=== PATIENT | female | born 1955 | race Caucasian/White ===

== ENCOUNTER 2021-12-05 13:10 | Inpatient (IN) | payer MEDICARE ==
[~2021-12-05] VITALS: Ht 165.1 cm; Wt 137.0 kg
[2021-12-05] MEDS ORDERED: ELIQUIS 5MG PO (14:35)
[2021-12-05] MEDS ORDERED: ERY-TAB250 MG PO (14:36)
[2021-12-05] MEDS ORDERED: LIPITOR 40MG TA40 MG PO (14:36)
[2021-12-05] MEDS ORDERED: ZESTRIL 10MG10 MG PO (14:37)
[2021-12-05] MEDS ORDERED: KEPPRA1000 MG PO (14:37)
[2021-12-05] MEDS ORDERED: PROTONIX 40MG T40 MG PO (14:38)
[2021-12-05] MEDS ORDERED: MELATONIN5 M1 PO (14:38)
[2021-12-05] MEDS ORDERED: TOPROL XL 50MG50 MG PO (14:38)
[2021-12-05] MEDS ORDERED: BELSOMRA10 MG PO (14:39)
[2021-12-05] MEDS ORDERED: SENOKOT S 50 MG1 TAB PO (14:39)
[2021-12-05] MEDS ORDERED: PROZAC40 MG PO (14:40)
[2021-12-05] MEDS ORDERED: KLOR-CON 1010 MEQ PO (14:40)
[2021-12-05] MEDS ORDERED: MIRAPEX 1MG PO (14:41)
--- NOTE | 2021-12-05 16:06 | NUR ---
Pt arrived to unit via medical transport from [facility]. She is a/o x4. Denies pain/discomfort. Verbalizes needs/wants. Admission intake and assessment completed. Orientation provided to room/unit
[2021-12-05 16:17] VITALS: BP 122/72; PULSE 71; TEMP 97.9
--- NOTE | 2021-12-05 16:24 | NUR ---
Pt brought 9-10 pairs of earrings to unit. 2 rings noted on left hand and right hand. Pt. does not want to store these in the safe at this time
[2021-12-05] MEDS ORDERED: LASIX 20MG TABL20 MG PO (17:25)
--- NOTE | 2021-12-05 18:08 | NUR ---
Pt assisted to toilet using gait belt, SBA.
[2021-12-05 18:09] VITALS: BP 122/72; PULSE 71; TEMP 97.9
--- NOTE | 2021-12-05 20:46 | NUR ---
PT RESTING IN BED. VERY TIRED. SEE MAR FOR MELATONIN GIVEN. LT SIDED WEAKNESS VERY MINIMAL. NO MOUTH DROOP. SOMETIME SPEECH IS SLURRED SLIGHTLY. DENEIS PAIN. CALL LIGHT IN REACH. BED ALARM SET.
--- NOTE | 2021-12-06 | NUR ---
gave tylenol for general aches
[2021-12-06 05:40] VITALS: BP 133/65; PULSE 74; TEMP 98.3
--- NOTE | 2021-12-06 09:24 | NUR ---
Initial visit; Patient thanked Stock Replenisher for looking in on her. No complained of a headache. Stock Replenisher asked if she had told her nurse and she said she would do so. Stock Replenisher offered God's blessings and to keep her in Chaplains prayers.
--- NOTE | 2021-12-06 09:28 | NUR ---
ASSESSMENT COMPLETED. PATIENT IS A & O X4. DENIES PAIN AT THIS TIME BUT HAD A TYLENOL LAST NIGHT FOR GENERAL PAIN. SPRING CATHETER IN TACT WITH YELLOW URINE. PLAN OF CARE WAS DISCUSSED AND INSTRUCTED TO CALL IF THERE IS ANY CONCERN OR QUESTION.
--- NOTE | 2021-12-06 09:50 | NUR ---
Patient with therapy taking shower.
--- NOTE | 2021-12-06 11:38 | NUR ---
Burgos cath DCd at this time. 10mls fluid removed from bulb-bulb intact. Discussed excoriation to skin folds with Dr Hicks. New orders received and initiated. Patient off floor at this time for PT.
--- NOTE | 2021-12-06 14:34 | NUR ---
HERBERTH completed intake with patient. Patient provides that she is from [facility] and lives a long. Next of kin is her son Daniel Brooke [phone]. Patient states that she was not previously using a walker, but stated therapy would like for her to use one currently. Patient is independent with ADL's, PCP is Dr. Iyer, pharmacy is [facility]. Patient provides that she does not have anyone appointed as her DPOA/HC, but is in the process of completing. Patient states that her plan upon DC is to go home if able to. SW will continue to follow. DC plan: home
--- NOTE | 2021-12-06 16:20 | NUR ---
Patient up to bathroom with one assist/gait belt/walker. Voided without difficulty. Medium formed bowel movement. Per care complete. Powder applied to excoriated areas of thighs/groin/abd folds.
[2021-12-06 16:47] VITALS: BP 125/55; PULSE 67; TEMP 98
--- NOTE | 2021-12-06 17:28 | NUR ---
Patient has had an uneventful day. Tolerated PT/OT. Has voided x1 since land cath removed. VS remained stable. 1 assist with walker/gait belt. Denies current needs. Call light in reach. Will monitor.
[2021-12-06 18:01] VITALS: BP 127/55; PULSE 70
--- NOTE | 2021-12-06 18:05 | NUR ---
Called with c/o headache-rating samantha 4/10 on pain scale. Blood pressure checked and WNL. Tylenol given per dr schilling.
--- NOTE | 2021-12-06 19:40 | NUR ---
ASSESSMENT COMPLETE. PT. LYING IN BED. A&O. MINOR EXCORTION TO INNER THIGHS. POWDER APPLIED. NO COMPLAINTS OF PAIN. CALL LIGHT IN REACH. NO FURTHER NEEDS AT THIS TIME.
[2021-12-07 05:16] VITALS: BP 135/53; PULSE 73; TEMP 97.7
[2021-12-07 07:18] VITALS: BP 134/58; PULSE 66; TEMP 98.1
[2021-12-07 17:24] VITALS: BP 104/30; PULSE 75; TEMP 98.5
--- NOTE | 2021-12-07 19:30 | NUR ---
RECEIVED CHANGE OF SHIFT REPORT FROM DAY SHIFT RN. PATIENT UP IN CHAIR DURING REPORT BUT WANTED BACK IN BED. TRANSFERED WITH NO PROBLEMS, REFUSED TO USE WALKER FROM CHAIR TO BED. CALL LIGHT WITHIN REACH. DENIES ANY NEEDS DURING REPORT.
--- NOTE | 2021-12-07 23:54 | NUR ---
REQUESTED/GIVEN TYLENOL FOR C/O BLE DISCOMFORT FROM RLS. SEE MAR FOR MED GIVEN.
[2021-12-08 05:58] VITALS: BP 119/70; PULSE 71; TEMP 97.9
--- NOTE | 2021-12-08 07:13 | NUR ---
CHANGE OF SHIFT REPORT GIVEN TO DAY SHIFT RNJANNETTE.
[2021-12-08 09:39] VITALS: BP 110/51; PULSE 84
--- NOTE | 2021-12-08 12:11 | NUR ---
0945 PATIENTS BP RECHECKED AND CURRENTLY 110/[address] BUSTAMANTEED TO GIVE ALL MORNING MEDICATIONS. AND TO INFORM HIM FOR SYSTOLIC <90
[2021-12-08 17:18] VITALS: BP 117/66; PULSE 77; TEMP 98
--- NOTE | 2021-12-08 19:00 | NUR ---
RECEIVED CHANGE OF SHIFT REPORT FROM DAY SHIFT RN.
--- NOTE | 2021-12-09 02:08 | NUR ---
PATIENT COMPLAINING OF OUTER CORNER OF R EYE WITH RED IRRITATION/SMALL AMOUNT OF SWELLING WITH SOME ITCHING TO AREA OF CONCERN. NO RELIEF WITH COOL OR WARM COMPRESSES. REPORTED THIS EYE REDNESS HAS BEEN BOTHERING PATIENT INTERMITTENTLY FOR ABOUT 1 MONTH.
--- NOTE | 2021-12-09 05:55 | NUR ---
OBSERVED INNER CORNER OF RIGHT EYE RED, WITH SWELLING AND ITCHING AND FEELING IRRITATED.
[2021-12-09 06:35] VITALS: BP 140/79; PULSE 73; TEMP 97.9
--- NOTE | 2021-12-09 07:41 | NUR ---
CHANGE OF SHIFT REPORT GIVEN TO DAY SHIFT RNGAURAV. PATIENT UP TO BATHROOM FEW TIMES DURING NIGHT, DENIED ANY PROBLEMS WITH AMBULATION. EXIT ALARM ON WHEN IN BED, WITH CALL LIGHT WITHIN REACH.
--- NOTE | 2021-12-09 08:32 | NUR ---
Shift report received from metal bonding assembler RN. Pt. awake and sitting up on side of bed for breakfast. She denies pain or discomfort. She reports some itching to her right eye and some crusting along lower eyelid. Per night report, periorbital puffiness noted during the night. No eye drainage per night nurse. Will continue to monitor and will notify MD during rounds today. Pt. denies additional needs at this time. Call light is within her reach
[2021-12-09 09:05] VITALS: BP 104/54
--- NOTE | 2021-12-09 09:22 | NUR ---
Pt off unit with PT for therapy
--- NOTE | 2021-12-09 14:21 | NUR ---
Pt resting in bed. Assisted up to bathroom using gait belt, walker. SBA provided.
--- NOTE | 2021-12-09 15:26 | NUR ---
Dr. Oh here to see pt. - notified of right eye redness. See Emar for new order
[2021-12-09 16:54] VITALS: BP 124/61; PULSE 72; TEMP 97.6
--- NOTE | 2021-12-09 18:52 | NUR ---
RECEIVED CHANGE OF SHIFT REPORT FROM DAY SHIFT RN.
[2021-12-10 05:50] VITALS: BP 130/73; PULSE 73; TEMP 97.5
--- NOTE | 2021-12-10 07:09 | NUR ---
CHANGE OF SHIFT REPORT GIVEN TO DAY SHIFT RNJANNETTE.
--- NOTE | 2021-12-10 14:40 | NUR ---
Admission QIM scores were reviewed by the team. Code of 6 chosen for sit to lying was determined by team discussion to be the most usual performance before interventions for this patient during the assessment period. Code of 6 chosen for lying to sitting on side of bed was determined by team discussion to be the most usual performance for this patient during the assessment period. Code of 3 chosen for walk 10 feet was determined by team discussion to be the most usual performance for this patient during the assessment period.--Mirta Murdock, PD
--- NOTE | 2021-12-10 14:50 | NUR ---
Director Of Marketing Communications met with patient to check in and schedule family meeting. Patient is happy to be able to move independently in her room. Patient would like her son, Daniel and friend, Joi (ph#[phone]) to be involved in her meeting by phone. HERBERTH scheduled meeting for tomorrow at 1000. HERBERTH contacted Daniel who confirmed he can participate by phone. HERBERTH attempted to contact Joi, however she did not answer and her voicemail was not set up.
[2021-12-10 17:07] VITALS: BP 106/58; PULSE 71; TEMP 98.1
--- NOTE | 2021-12-10 19:00 | NUR ---
RECEIVED CHANGE OF SHIFT REPORT FROM DAY SHIFT RN.
[2021-12-11 06:10] VITALS: BP 105/50; PULSE 69; TEMP 97.6
--- NOTE | 2021-12-11 06:58 | NUR ---
CHANGE OF SHIFT REPORT GIVEN TO DAY SHIFT RNGAURAV. PATIENT UP IN ROOM PER SELF WITH NO REPORTED PROBLEMS OR CONCERNS.
--- NOTE | 2021-12-11 07:00 | NUR ---
Shift report received from steel post installer RN. Pt. resting in left side lying position in bed. She remains Mod I in room. Call light is within her reach
[2021-12-11 07:38] VITALS: BP 121/63; PULSE 86
--- NOTE | 2021-12-11 10:11 | NUR ---
Pt resting in left side lying position in bed. She remains Mod I in room. She denies pain/discomfort at this time. She reports she had some diarrhea this morning after eating sausage and drinking chocolate milk. She denies abd. pain or nausea. She denies additional needs. Call light is within her reach
--- NOTE | 2021-12-11 12:28 | NUR ---
Pt sitting in recliner for lunch. She denies pain/discomfort. She is looking forward to discharging home later this week. She denies additional needs. Call light is within her reach
--- NOTE | 2021-12-11 13:09 | NUR ---
Pt up to ambulate to gym with PT
--- NOTE | 2021-12-11 13:10 | NUR ---
[facility] [employer] [facility] attended patient/familyi meeting which included patient's son, Daniel by phone. Mirta IPR Director opened the meeting followed by report from therapy. Discharge date is set for Thursday and recommendation for services is outpatient PT/OT vs Home Health. SW followed up with patient to review team conference notes. SW reviewed both outpatient therapy and Home Health services and patient would prefer HH at this time. Patient would like to use [facility]
--- NOTE | 2021-12-11 15:26 | NUR ---
Pt sitting in recliner after working with OT. Pt. showered during OT session. She denies pain/discomfort. Denies additional needs. Call light is within her reach
[2021-12-11 17:17] VITALS: BP 104/48; PULSE 62; TEMP 97.4
--- NOTE | 2021-12-11 17:43 | NUR ---
Pt sitting up on edge of bed watching television. She has just finished eating dinner. She denies pain/discomfort. Denies any further episodes of diarrhea since mid-morning. Call light is within her reach
[2021-12-12 05:34] VITALS: BP 123/52; PULSE 73; TEMP 97.7
--- NOTE | 2021-12-12 06:19 | NUR ---
Pt had an uneventful shift, rested in bed and watched television for most of the evening. Assessment and medication administration completed without difficulty. Pt is A&Ox4 and pleasant. Pt complained of a headache intermittently, PRN pain medication given per EMAR. All other needs met at this time, call light within reach. Will continue to monitor.
[2021-12-12 09:11] VITALS: BP 108/59; PULSE 71
--- NOTE | 2021-12-12 09:14 | NUR ---
Patient complaining of a headache, unrelieved by tylenol, 3/10 on pain scale. pain located above left eyebrow. BP checked, current BP is 108/59, HR 71. then patient stated she has a headache because her "bra is on."
--- NOTE | 2021-12-12 16:26 | NUR ---
Urban Design Consultant contacted [facility] and they do not accept [employer]. SW followed up with patient and provided Medicare.gov list of agencies. Patient selected [facility]. HERBERTH contacted Princess at [facility] and faxed referral. HERBERTH presented IM form to patient who verbalized understanding then provided signature. Patient declined copy. HERBERTH placed form in chart.
[2021-12-12 17:10] VITALS: BP 119/53; PULSE 76; TEMP 98
--- NOTE | 2021-12-13 01:45 | NUR ---
Pt has had an uneventful shift thus far, she has been resting in bed and watching television. Pt has had minimal complaints of pain, but did complain of a headache earlier in the shift; PRN pain medication was given per EMAR. Full body assessment and medication administration completed without difficulty. All other needs met at this time, call light within reach. Will continue to monitor.
[2021-12-13 05:13] VITALS: BP 119/44; PULSE 76; TEMP 97.7
[2021-12-13] MEDS ORDERED: ERY-TAB250 MG PO (08:58)
[2021-12-13] MEDS ORDERED: ELIQUIS 5MG PO (08:58)
[2021-12-13] MEDS ORDERED: TOPROL XL 50MG50 MG PO (08:59)
[2021-12-13] MEDS ORDERED: LIPITOR 40MG TA40 MG PO (08:59)
[2021-12-13] MEDS ORDERED: KEPPRA1000 MG PO (09:00)
[2021-12-13] MEDS ORDERED: ZESTRIL 10MG10 MG PO (09:00)
[2021-12-13] MEDS ORDERED: LASIX 20MG TABL20 MG PO (09:01)
[2021-12-13] MEDS ORDERED: PROTONIX 40MG T40 MG PO (09:02)
--- NOTE | 2021-12-13 10:22 | NUR ---
PATIENT TO DISCHARGE TODAY. DOING WELL THIS MORNING. NO COMPLAINTS. ABLE TO AMBUALTE IN ROOM WITHOUT ASSISTANCE. USES WALKER AT TIMES FOR STABILITY. NO SEIZURE ACTIVITY REPORTED OR OBSERVED. PATIENT STATES SHE IS READY TO GO HOME. PARTICIPATED IN THERAPY TODAY WITHOUT ISSUE. A&O X4, PLEASANT. CONTINENT OF B/B. ABLE TO FEED SELF. TAKES MEDS WHOLE. VITALS WNL
--- NOTE | 2021-12-13 16:24 | NUR ---
Cannoneer contacted Princess at [facility] who advised they cannot accept referral. SW faxed referral to [facility] and [facility]. SW received a message from [facility] that patient's address is outside of their service area. HERBERTH followed up with Arlette at [facility] who advised they can accept referral. HERBERTH faxed discharge orders. Discharge Plan: Home with [facility]
== END 2021-12-13 12:15 | disposition home health service (06) | DRG 57 ==
PROVIDERS: ADMIT Physical Medicine & Rehabilitation Sports Medicine
DX: I69.354 Hemiplegia and hemiparesis following cerebral infarction affecting left non-dominant side (principal); I82.412 Acute embolism and thrombosis of left femoral vein; Z68.43 Body mass index [BMI] 50.0-59.9, adult; I69.392 Facial weakness following cerebral infarction; I69.328 Other speech and language deficits following cerebral infarction; I69.391 Dysphagia following cerebral infarction; R13.10 Dysphagia, unspecified; E66.01 Morbid (severe) obesity due to excess calories; R56.9 Unspecified convulsions; I48.91 Unspecified atrial fibrillation; K31.84 Gastroparesis; E04.1 Nontoxic single thyroid nodule; I10 Essential (primary) hypertension; E78.5 Hyperlipidemia, unspecified; F32.A Depression, unspecified; G25.81 Restless legs syndrome; K21.9 Gastro-esophageal reflux disease without esophagitis; R26.89 Other abnormalities of gait and mobility; R53.81 Other malaise; G47.00 Insomnia, unspecified; Z73.6 Limitation of activities due to disability; Z20.822 Contact with and (suspected) exposure to COVID-19; Z88.8 Allergy status to other drugs, medicaments and biological substances
CPT/HCPCS: 99223; 99232-AI